=== PATIENT | female | born 1985 | race Caucasian/White ===

== ENCOUNTER 2018-02-24 10:17 | Inpatient (IN) | payer OTHER ==
[2018-01-29 11:24] VITALS: BMI 50.0
[2018-01-29 12:12] LABS: BASO % 0.2 %; BASO ABS # 0.02 K/uL (0-0.2); EOS % 3.2 %; EOS ABS # 0.28 K/uL (0-0.5); HEMATOCRIT 43.4 % (37-47); HEMOGLOBIN 14.5 g/dL (12.0-16.0); IG# 0.02 K/uL (0.00-0.02); LYMPH % 31.2 %; LYMPH ABS # 2.74 K/uL (1.2-3.4); MEAN CELL VOLUME 88.9 fL (80-100); MEAN CORPUSCULAR HEMOGLOBIN 29.7 pg (25-34); MEAN CORPUSCULAR HGB CONC 33.4 g/dl (32-36); MEAN PLATELET VOLUME 11.6 fL (7.4-10.4); MONO % 6.8 %; NEUT % 58.4 %; NEUT ABS # 5.11 K/uL (1.4-6.5); PLATELET COUNT 384 K/uL (130-400); RED CELL DISTRIBUTION WIDTH CV 13.5 % (11.5-14.5); RED CELL DISTRIBUTION WIDTH SD 44.1 fL (36.4-46.3); WHITE BLOOD COUNT 8.77 K/uL (4.8-10.8)
[2018-01-29 12:20] LABS: CALCIUM 9.3 mg/dl (8.5-10.1); CREATININE 0.88 mg/dl (0.60-1.20); POTASSIUM 3.5 mmol/L (3.5-5.1)
--- NOTE | 2018-01-29 12:24 | PAT Medication Instructions ---
Service Date Jan 29, 2018. Current Home Medication List Albuterol Hfa (Ventolin Hfa), Unknown Dose INH UD PRN for ASTHMA Chlorthalidone (Hygroton), 25 MG PO QAM Diltiazem Hcl Ext Rel (Tiazac), 300 MG PO QAM Fluticasone Propionate (Flovent Hfa), Unknown Dose INH QAM Nitroglycerin (Nitrostat), 1 TAB SL UD PRN for PRN Medication Instructions For Your Scheduled Surgery - Hold the following medications the morning of surgery (check if okay with hand i thermal cutter or if any other blood pressure medication recommendations for surgery): Chlorthalidone (Hygroton), 25 MG PO QAM - Take the following medications the morning of surgery with a sip of water: Nitroglycerin (Nitrostat), 1 TAB SL UD PRN for PRN (if needed) Diltiazem Hcl Ext Rel (Tiazac), 300 MG PO QAM Fluticasone Propionate (Flovent Hfa), Unknown Dose INH QAM Albuterol Hfa (Ventolin Hfa), Unknown Dose INH UD PRN for ASTHMA (if needed) - Take the following medications as scheduled the night before surgery: Nitroglycerin (Nitrostat), 1 TAB SL UD PRN for PRN (if needed) Albuterol Hfa (Ventolin Hfa), Unknown Dose INH UD PRN for ASTHMA (if needed) If you have any questions please call us at [phone] or [phone] or [phone]
--- NOTE | 2018-01-29 13:08 | DIAGNOSTIC IMAGING REPORT ---
CHEST 2 VIEWS ROUTINE HISTORY: Preop. COMPARISON: Chest 08/15/2006. FINDINGS: The lungs are clear. Cardiac silhouette is top normal in size. No pleural effusions. No pneumothorax. IMPRESSION: No acute process. Electronically signed by: Caleb Allen M.D. 01/29/2018 1:07 PM Dictated Date/Time: 01/29/2018 1:01 PM
[~2018-02-24] VITALS: Ht 160 cm; Wt 128.0 kg
[2018-02-24] VITALS (10 sets, daily range): BP systolic 142–192; BP diastolic 98–140; PULSE 85–100; TEMP 36.6–36.8; O2SAT 92–98; Ht 160 cm; Wt 128.0 kg
[~2018-02-24 10:17] MED LIST: ACETAMINOPHEN 500 MG TAB PO SCH; CLINDAMYCIN 600 MG/54 ML D5W 54 ML IV SCH; CeleBREX 200 MG CAP PO SCH; DILT-117 PO; FLVHFA110 INH; GABAPENTIN 900 MG PO SCH; HYG/25 PO; LACTATED RINGER'S 1000ML 1,000 ML IV SCH; NTRGSL/4 SL; VNTHFA/IN INH
[2018-02-24] MEDS ORDERED: MIDAZOLAM HCL 1 MG/ML 2ML VIAL ONE (11:35)
[2018-02-24] MEDS ORDERED: FENTANYL CITRATE INJ 50 MCG/1 ML 2 ML VIAL ONE ×4 (11:35→13:39)
--- NOTE | 2018-02-24 11:53 | History & Physical Bridge Note ---
H&P Re-Evaluation Bridge Note: I have examined the patient, reviewed the History & Physical and in the interval since the performance of the History & Physical I have noted the following changes of clinical significance: No changes noted
--- NOTE | 2018-02-24 11:54 | History and Physical ---
History & Physical Date Feb 24, 2018. Chief Complaint Back and leg pain History of Present Illness The patient is a 32 year old female with complaints of back and leg pain Additional History Hepatic Disease: No Endocrine Disorder: No Kidney Disease: No Hypertension: Yes Heart Disease: No Bleeding Tendencies: No Infectious Diseases: No Allergies Coded Allergies: [place] (Verified Allergy, Unknown, breathing problems, 02/24/18) Meperidine (Verified Allergy, Unknown, hives, 02/24/18) Penicillins (Verified Allergy, Unknown, hives, 02/24/18) pt. gets hives and has breathing problems taking pcn - pt denies breathing problems with pencillins 01/29/18 Unclassified Drugs (Verified Allergy, Unknown, FOOD ALLERGIES SEE BELOW, ) HAM - HIVES, JELLY BEANS - RASH, COOKIE DOUGH - HIVES, [employer] CHICKEN - HIVES Uncoded Allergies: MARÍA FOR SURGERY (Allergy, Severe, BODY REJECTS THEM, 02/24/18) Home Medications Scheduled Chlorthalidone (Hygroton), 25 MG PO QAM Diltiazem Hcl Ext Rel (Tiazac), 300 MG PO QAM Fluticasone Propionate (Flovent Hfa), Unknown Dose INH QAM Scheduled PRN Albuterol Hfa (Ventolin Hfa), Unknown Dose INH UD PRN for ASTHMA Nitroglycerin (Nitrostat), 1 TAB SL UD PRN for PRN Physical Examination Skin: warm/dry, no rash Eyes: normal inspection, EOMI, sclerae normal ENT: normal ENT inspection, pharynx normal Head: normocephalic, atraumatic Neck: supple, no adenopathy, trachea midline Respiratory/Chest: lungs clear, normal breath sounds, no respiratory distress Cardiovascular: regular rate, rhythm, no edema, no murmur Abdomen / GI: normal bowel sounds, non tender Back: normal inspection Extremities: normal inspection, normal range of motion Neurologic/Psych: no motor/sensory deficits, alert, normal reflexes, oriented x 3 Diagnosis Lumbar spinal stenosis with spondylolisthesis Plan of Treatment Decompression fusion L5-S1
[2018-02-24] MEDS ORDERED: BUPIVACAINE/EPINEPHRINE 0.5% MPF 1:200,000 30 ML VIAL ONE (12:17)
[2018-02-24] MEDS ORDERED: BACITRACIN 50000 UNIT VIAL ONE (12:17)
[2018-02-24] MEDS ORDERED: HYDROmorphone INJ 2 MG/ML SYR/VIAL ONE ×2 (12:51→13:05)
[2018-02-24] MEDS ORDERED: EpHEDrine SULFATE 50MG/5ML SYR ONE (13:53)
[2018-02-24] MEDS ORDERED: NEOSTIGMINE METHYLSULFATE 1 MG/ML 10ML VIAL ONE (13:53)
[2018-02-24] MEDS ORDERED: GLYCOPYRROLATE INJ 0.2 MG/ML VIAL ONE (13:53)
[2018-02-24] MEDS ORDERED: PHENYLEPHRINE 100MCG/ML 5ML SYR ONE (13:53)
[2018-02-24] MEDS ORDERED: LIDOCAINE HCL 2% 2 ML VIAL (20MG/ML) ONE (13:53)
[2018-02-24] MEDS ORDERED: LARYING-O-JET KIT (LTA) ONE (13:53)
[2018-02-24] MEDS ORDERED: PROPOFOL IV EMULSION 10 MG/ML 20 ML VIAL IV ONE (13:53)
[2018-02-24] MEDS ORDERED: DEXAMETHASONE SOD INJ 4 MG/ML VIAL ONE (13:53)
[2018-02-24] MEDS ORDERED: ROCURONIUM BROMIDE 10 MG/ML 5 ML VIAL IV ONE (13:53)
[2018-02-24] MEDS ORDERED: FLOSEAL HEMOSTATIC MATRIX 10ML TOP ONE (13:57)
--- NOTE | 2018-02-24 14:03 | [facility] Operative Report ---
Operative Report Operative Date Feb 24, 2018. Pre-Operative Diagnosis Lumbar spinal stenosis with spondylolisthesis Post-Operative Diagnosis Same Procedure(s) Performed 1. Lumbar decompression medial facetectomy foraminotomy L5-S1. #2 posterior spinal fusion L5-S1. #3 placement posterior instrumentation L5-S1. #4 interbody fusion L5-S1. #5 placed a peek cage 12 x 22 mm 2 L5-S1. #6 placement of locally harvested morselized autograft in the posterior gutters. #7 placement InFUSE collagen sponge, mass graft in the posterior lateral gutters and ostial amp in the interbody space. Surgeon Dr. Van Young Towel Distributor Surgeon(s) Susan Ritchie PA-C Estimated Blood Loss 250 Description of Procedure Patient was met with preoperatively case discussed all questions addressed. After informed consent obtained patient was taken to the operative suite underwent intubation and placed in a prone position on the Sandeep table on top of the Denzel frame. All bony prominences were well-padded eyes inspected to ensure no external pressure placed upon the. This point the lumbar spine was prepped and draped in normal sterile fashion. Sharp dissection the assistance of Bovie cautery was performed down to and exposing the lamina and transverse processes L5 S sacral ala bilaterally. Obvious bilateral pars defect was identified. A complete laminectomy of L5 was performed including bilateral foraminotomies. Pedicle screws are then placed in L5-S1 levels bilaterally with the assistance of fluoroscopy and the appropriately sized ronaldo placed through a transforaminal approach on the left complete discectomy was performed endplates created to subcortical bleeding bone and a 12 x 22 mm peek cage filled with ostium bone graft tapped in position. I also approach to the right transforaminal area and inserted a cage on this side as well. The rods were then compressed locked into final position bilaterally. The transverse processes of L5 and sacral ala burred to subcortical bleeding bone. Infuse collagen sponge master graft and locally harvested Ferguson's allograft was placed in the posterior lateral gutters. A 15 round MACIE drain inserted. Incision was then closed with 1 Vicryl fascia 2-0 Vicryl substantially 4-0 Monocryl for fashion closure Steri-Strips sterile dressings placed. Patient will continue to PACU stable condition. Please note Susan Carmen was present throughout the entire procedure involved in patient positioning complex portions of the surgery and final skin closure. I attest to the content of the Intraoperative Record and any orders documented therein. Any exceptions are noted below.
[2018-02-24] MEDS ORDERED: SODIUM CHLORIDE 0.9% 1000ML 1,000 ML IV SCH (14:04)
--- NOTE | 2018-02-24 14:14 | DIAGNOSTIC IMAGING REPORT ---
LUMBAR SPINE, INTRAOPERATIVE FLUOROSCOPY HISTORY: L5-S1 decompression and fusion. FLUOROSCOPY TIME: 18 seconds. FINDINGS: Intraoperative fluoroscopy was provided for the lumbar spine. 2 fluoroscopic spot images were obtained. Posterior decompression and fusion at L5-S1 with pedicle screws and rods. The hardware appears intact. IMPRESSION: Fluoroscopy provided for a L5-S1 posterior decompression and fusion. Electronically signed by: Caleb Allen M.D. 02/24/2018 2:13 PM Dictated Date/Time: 02/24/2018 2:12 PM
[2018-02-24] MEDS ORDERED: METOCLOPRAMIDE HCL INJ 5 MG/ML 2 ML VIAL IV PRN (14:15)
[2018-02-24] MEDS ORDERED: NALOXONE HCL 0.4 MG/1 ML VIAL/CARP IV PRN (14:15)
[2018-02-24] MEDS ORDERED: ALUMINUM/MAGNESIUM SUSP 30 ML UDC PO PRN (14:15)
[2018-02-24] MEDS ORDERED: DO NOT ADMINISTER PNEUMOCOCCAL VACCINE PRN (14:15)
[2018-02-24] MEDS ORDERED: MAGNESIUM HYDROXIDE SUSP 30 ML UDC PO PRN (14:15)
[2018-02-24] MEDS ORDERED: ACETAMINOPHEN IV 100 ML IV PRN (14:15)
[2018-02-24] MEDS ORDERED: NITROGLYCERIN 0.4 MG SL PER TAB CHARGE SL PRN (14:15)
[2018-02-24] MEDS ORDERED: LORAZEPAM INJ 0.5 MG in SYRINGE 0.75 ML IV PRN (14:15)
[2018-02-24] MEDS ORDERED: DO NOT ADMINISTER FLU VACCINE PRN (14:15)
[2018-02-24] MEDS ORDERED: BISACODYL 10 MG SUPP PR PRN (14:15)
[2018-02-24] MEDS ORDERED: PROMETHAZINE HCL INJ 12.5 MG in SODIUM CHLORIDE 0.9% 50ML 50 ML IV PRN ×2 (14:15→16:45)
[2018-02-24] MEDS ORDERED: SOD PHOSPHATE/SOD BIPHOSPHATE ENEMA 132 ML BTL PR PRN (14:15)
[2018-02-24] MEDS ORDERED: LORAZEPAM 0.5 MG TAB PO PRN (14:15)
[2018-02-24] MEDS ORDERED: ONDANSETRON INJ 2 MG/ML 2 ML VIAL IV PRN (14:15)
[2018-02-24] MEDS ORDERED: hydrOXYzine HCL 25 MG TAB PO PRN (14:15)
[2018-02-24] MEDS ORDERED: FAMOTIDINE 20 MG TAB PO PRN (14:15)
[2018-02-24] MEDS ORDERED: ESMOLOL HCL 10 MG/ML 10 ML VIAL ONE (14:18)
[2018-02-24] MEDS ORDERED: HYDROmorphone HCL 0.5MG/ML 50 ML CASSETTE ONE (14:22)
--- NOTE | 2018-02-24 14:59 | Anesthesiology Progress Note ---
Anesthesia Post Op Note Date & Time Feb 24, 2018 at 14:58 Vital Signs Pain Intensity: 0 Vital Signs Past 12 Hours Date Time Temp Pulse Resp B/P (MAP) Pulse Ox O2 Delivery O2 Flow Rate FiO2 02/24/18 14:50 91 22 170/104 94 Nasal Cannula 4 182/103 02/24/18 14:40 97 24 160/106 96 Oxymask 10 02/24/18 14:30 101 20 172/122 100 Oxymask 10 02/24/18 14:22 36.3 89 19 187/122 95 Oxymask 10 02/24/18 11:12 36.8 91 20 192/140 02/24/18 10:50 36.8 95 20 185/113 98 Room Air Notes Mental Status: alert / awake / arousable, participated in evaluation Pt Amnestic to Procedure: Yes Nausea / Vomiting: adequately controlled Pain: adequately controlled Airway Patency, RR, SpO2: stable & adequate BP & HR: stable & adequate Hydration State: stable & adequate Anesthetic Complications: no major complications apparent Patient is at her baseline blood pressure.
[2018-02-24] MEDS ORDERED: EpHEDrine SULFATE INJ 50 MG/ML AMP IV PRN (15:15)
[2018-02-24] MEDS ORDERED: ATROPINE SULFATE 0.1 MG/ML 5ML SYR IV PRN (15:15)
[2018-02-24] MEDS: HYDROmorphone HCL 0.5MG/ML 50 ML CASSETTE IV PRN ×2 (15:44→22:58)
[2018-02-24] MEDS ORDERED: LISI40TA PO (16:38)
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
[2018-02-24] MEDS ORDERED: HydrALAZINE HCL 20 MG/ML VIAL IV. PRN (18:15)
[2018-02-24] MEDS ORDERED: NURSING DECISION MEDICATION ORDER SCH (18:45)
[2018-02-24] MEDS ORDERED: COUGH DROP (SUGAR FREE) LOZ 24 LOZ/1 BOX LOZ PRN (18:45)
[2018-02-24] MEDS: LACTATED RINGER'S 1000ML 1,000 ML IV SCH (19:04)
[2018-02-24] MEDS: ERYTHROMYCIN OP OINT 5 MG/GM 3.5 GM TUBE OP SCH (19:42)
[2018-02-24] MEDS: CLINDAMYCIN IV 600 MG in DEXTROSE 5% 50ML 50 ML IV SCH (19:42)
--- NOTE | 2018-02-24 20:27 | Anesthesiology Progress Note ---
Anesthesia Progress Note Date of Service Feb 24, 2018. Progress Notes Patient seen for c/o OD pain/sensation of something gritty in right eye.PT is s/ p lumbar spine surgery this afternoon.Pt denies any visual acuity defect. Pt states when she looks to the right with her right eye there is some blurriness in the the right lateral field.I have examined her right eye and cannot appreciate any lesion.I have ordered erythromycin ophthalmic ointment to be applied to the OD TID x 5 days and that it should clear up .If it doesn't by then she should call the Dept of anesthesia.
[2018-02-24] MEDS: DOCUSATE SODIUM/SENNA 50/8.6MG TAB PO SCH (20:33)
[2018-02-24] MEDS ORDERED: NURSING VERBAL MED ORDER ONE (20:45)
[2018-02-25] MEDS: LACTATED RINGER'S 1000ML 1,000 ML IV SCH (02:00)
[2018-02-25 03:35] VITALS: BP 144/55; PULSE 96; TEMP 36.8; O2SAT 95
[2018-02-25] MEDS: CLINDAMYCIN IV 600 MG in DEXTROSE 5% 50ML 50 ML IV SCH (04:02)
[2018-02-25] MEDS ORDERED: NURSING VERBAL MED ORDER ONE ×2 (05:45→21:15)
[2018-02-25 05:55] LABS: HEMATOCRIT 36.7 % (37-47); HEMOGLOBIN 12.1 g/dL (12.0-16.0); IG# 0.04 K/uL (0.00-0.02); LYMPH ABS # 1.34 K/uL (1.2-3.4); MEAN PLATELET VOLUME 11.5 fL (7.4-10.4); MONO ABS # 0.94 K/uL (0.11-0.59); NEUT % 82.7 %; NEUT ABS # 11.14 K/uL (1.4-6.5); NUCLEATED RED BLOOD CELL ABS 0.02 K/uL (0-0); PLATELET COUNT 285 K/uL (130-400); RED CELL DISTRIBUTION WIDTH CV 13.1 % (11.5-14.5); RED CELL DISTRIBUTION WIDTH SD 41.7 fL (36.4-46.3); WHITE BLOOD COUNT 13.46 K/uL (4.8-10.8)
[2018-02-25] MEDS ORDERED: DC PCA SCH (06:00)
[2018-02-25] MEDS ORDERED: NALOXONE HCL 0.4 MG/1 ML VIAL/CARP IV PRN (06:00)
[2018-02-25 06:26] LABS: CALCIUM 8.6 mg/dl (8.5-10.1); CREATININE 0.99 mg/dl (0.60-1.20); POTASSIUM 3.7 mmol/L (3.5-5.1)
--- NOTE | 2018-02-25 07:01 | Clinical Documentation Query ---
IVANIA Webster : CLINICAL DOCUMENTATION QUERY BMI noted to be 50 kg/m*m. In order to capture this always relevant clinical information, an associated clinical diagnosis must be explicitly documented by the provider. As appropriate, consider documentation as suggested below. Thank you. In your clinical opinion is this patien: ( ) Morbidly obese, BMI 50.0 kg/m*m ( ) Not Agree ( ) Other explanation of clinical findings (Please Explain) ( ) Unable to determine (Please Define) ( ) Need to Discuss The medical record reflects the following clinical findings, treatment, and risk factors. Clinical Indicators: As above Risk Factors: Caloric intake > caloric expenditure Please clarify and document your clinical opinion in the progress notes and discharge summary. Terms such as "probable", "suspected", "likely", "questionable", "possible", or "still to be ruled out" are acceptable. IF IN AGREEMENT, YOU MUST DOCUMENT ABOVE DIAGNOSTIC STATEMENT IN DAILY PROGRESS NOTES AND DISCHARGE SUMMARY. This document is not part of the patient's record. Thank You, Angel Whipple, CAT [phone]
[2018-02-25 07:20] VITALS: BP 116/75; PULSE 86; TEMP 36.8; O2SAT 96
[2018-02-25] MEDS ORDERED: RXC5 PO (07:36)
--- NOTE | 2018-02-25 07:37 | Discharge Instructions ---
Discharge Instructions Date of Service Feb 25, 2018. Admission Reason for Admission: Spinal Stenosis Discharge Discharge Diagnosis / Problem: cervical stenosis Discharge Goals Goal(s): Improve function Activity Recommendations Activity Limitations: per Instructions/Follow-up section . Instructions / Follow-Up Instructions / Follow-Up ACTIVITY RECOMMENDATIONS: SELF CARE INSTRUCTIONS AFTER THORACIC/LUMBAR FUSIONS 1. You may walk to your tolerance. It is good exercise for your legs and back. Expect some back and intermittent leg aches and pains. 2. You may perform "counter-top" level activities (make a sandwich, gavino with a project, etc.). 3. No bending or lifting of more than 10 pounds or back twisting of any nature (roll like a log when turning in bed). 4. You may ride in a car for 20-30 minutes at a time. No driving until after your first visit with your doctor. 5. Frequent changes of position and restricting sitting to 30 minutes at a time will help limit the amount of back spasms and stiffness you may experience. 6. You may discontinue the use of ambulatory aids (cane, crutches, etc.) once your strength and confidence allow. 7. You may floor refinisher the shower and let water strike your incision when you arrive home at least once daily. Do not take a tub bath, sit in a hot tub or go into a swimming pool until after your first recheck in the office. SPECIAL CARE INSTRUCTIONS: VERY IMPORTANT TO READ AND REVIEW A. Your surgical incision has been closed with a cosmetic suture under the skin that will dissolve in about 6 weeks. In 14 days, you can use a pair of clean scissors and cut the suture that is left outside of the skin at the ends of your incision. 1. The small skin tapes can be removed 7 days after surgery if they have not fallen off by that point. 2. You may keep the wound open to air as much as possible to promote healing after post-op day number 5 unless told otherwise by your doctor. 3. If you think the wound looks like it is becoming infected (redness or worsening drainage) and/or you are experiencing fever, chill or worsening back pain and muscle spasms, contact the office so that we may evaluate you as soon as possible. B. Complications are uncommon, but please contact us if you have any signs or symptoms of: 1. wound infection (fever higher than 102.5 degrees F, redness, separation of wound, drainage, or increasing pain from the incision) 2. blood clots in legs (pain, swelling, redness and warmth in legs) 3. urinary tract infection (fever higher than 102.5 degrees F, burning upon urination or increased frequency of urination) 4. nerve problems (inability to walk on your toes or heels, numbness, loss of bowel or bladder control) 5. any other symptoms that concern you C. Please call the office at if you have any concerns or questions about your operation or recovery. D. No smoking! Smoking drastically decreases the chance of a solid fusion. E. Do not take any anti-inflammatory medications (Indocin, Advil, Motrin, Aspirin, Naprosyn, etc.) as these may inhibit the chance of a solid fusion. Tylenol is okay to take for pain. MANAGING PAIN AFTER SPINAL SURGERY 1. Narcotic medication is intended for short-term use and will be provided for surgical pain. Surgical pain usually lasts for a period of 4-6 weeks. Narcotic medication includes Percocet, Vicodin, Darvocet, Tylenol #3 or Lortab. 2. Longer-term pain is more appropriately treated with non-narcotic medication such as Tylenol ES. 3. Muscle spasm is not appropriately treated with narcotics. Muscle relaxers such as Soma, Flexeril or Skelaxin can be used along with Tylenol ES. 4. Remember that we all live with some "aches and pains". This is not unusual or uncommon after an injury or as we get older. a. Back pain is expected and may include muscle spasms for 4 to 6 weeks after surgery. The pain should gradually improve. If the pain worsens for no apparent reason, please contact the office. b. Intermittent leg pain may also be experienced and should not be concerned about unless it worsens for no apparent reason. If so, please contact the office. 5. We will provide appropriate medication within the normal guidelines of their prescribed use. We will also be very cautious and aware of potential abuse and extended duration of patients' medication needs. a. Pain medications are for your comfort and to assist with sleep and rest so that the tissue can heal. They are not provided in order to return to normal activity and should not be used through the day. To do so or worsening pain at night can result from ongoing tissue damage and development of tolerance to the prescribed medicine. 6. Please allow 2-3 days to process refills. Prescriptions will not be mailed but must be picked up at the office. FOLLOW UP VISIT: Keep your scheduled follow-up appointment. Any questions, please call the office at . Current Hospital Diet Patient's current hospital diet: Regular Diet, Low Sodium Diet (2gm Na) Discharge Diet Recommended Diet: Regular Diet Procedures Procedures Performed: 1. Lumbar decompression medial facetectomy foraminotomy L5-S1. #2 posterior spinal fusion L5-S1. #3 placement posterior instrumentation L5-S1. #4 interbody fusion L5-S1. #5 placed a peek cage 12 x 22 mm 2 L5-S1. #6 placement of locally harvested morselized autograft in the posterior gutters. #7 placement InFUSE collagen sponge, mass graft in the posterior lateral gutters and ostial amp in the interbody space. Pending Studies Studies pending at discharge: no Medical Emergencies . Who to Call and When: Medical Emergencies: If at any time you feel your situation is an emergency, please call 911 immediately. . Non-Emergent Contact Non-Emergency issues call your: Primary Care Provider . "Provider Documentation" section prepared by Van Young. .
--- NOTE | 2018-02-25 07:42 | Anesthesiology Progress Note ---
Anesthesia Post Op Note Date & Time Feb 25, 2018 at 07:42 Vital Signs Vital Signs Past 12 Hours Date Time Temp Pulse Resp B/P (MAP) Pulse Ox O2 Delivery O2 Flow Rate FiO2 02/25/18 07:20 36.8 86 16 116/75 (89) 96 Room Air 02/25/18 03:35 36.8 96 18 144/55 (84) 95 Room Air 02/24/18 23:50 Room Air 02/24/18 22:45 36.8 100 18 155/104 (121) 93 Room Air Notes Mental Status: alert / awake / arousable, participated in evaluation Pt Amnestic to Procedure: Yes Nausea / Vomiting: adequately controlled Pain: adequately controlled Airway Patency, RR, SpO2: stable & adequate BP & HR: stable & adequate Hydration State: stable & adequate Anesthetic Complications: no major complications apparent
[2018-02-25] MEDS: OXYCODONE HCL IR 5 MG TAB (IMMEDIATE RELEASE) PO PRN ×4 (08:02→23:26)
[2018-02-25] MEDS: FLUTICASONE HFA 220 MCG INHALER INH SCH (08:04)
[2018-02-25] MEDS: ERYTHROMYCIN OP OINT 5 MG/GM 3.5 GM TUBE OP SCH ×3 (08:04→21:12)
[2018-02-25] MEDS: CHLORTHALIDONE 25 MG TAB PO SCH (08:05)
[2018-02-25] MEDS: REL PO SCH ×2 (08:06)
[2018-02-25] MEDS: DILTIAZEM HCL PO SCH ×2 (08:06)
[2018-02-25] MEDS ORDERED: DILTIAZEM HCL PO SCH (09:00)
[2018-02-25] MEDS ORDERED: LISINOPRIL 40 MG TAB PO SCH (09:00)
[2018-02-25] MEDS: ACETAMINOPHEN 500 MG TAB PO PRN (10:29)
--- NOTE | 2018-02-25 10:54 | Anesthesiology Progress Note ---
Anesthesia Progress Note Date of Service Feb 25, 2018. Progress Notes patient was seen on the floor yesterday with complaint of pain, tearing, and blurry vision in R eye. she did not notice these issues when i discharged her from [facility]. she was seen on the floor by my partner who did not appreciate an abrasion but treated her emperically with erythromycin opthalmic ointment. today she is seated in a chair and feeling much better. she has no tearing, pain, or visual disturbance. i appreciate no visual deficits and can not see any lesions in the eye. I explained the possibility that this may be a very small corneal abrasion and that she should continue the ointment as an outpatient for a total of 5 days. we will be happy to reevaluate her if new issues arise.
--- NOTE | 2018-02-25 13:26 | Progress Note ---
Progress Note Date of Service Feb 25, 2018. Progress Note Patient's back pain is controlled her leg pain is markedly improved. Vital signs are stable. On exam she is in a chair at the bedside is excellent strength testing appears comfortable. Assessment status post lumbar decompression fusion. Plan at this time we will continue physical therapy advance her bowel regiment anticipate home tomorrow.
--- NOTE | 2018-02-25 15:04 | Progress Note ---
Medicine Progress Note Date & Time of Visit: Feb 25, 2018 at 14:56. Subjective seen resting in bedside chair comfortable states she feels fine overall surgical site feels "sore" but pain well controlled noticed swelling of both feet but no pain/tenderness no other symptoms Objective Last 8 Hrs Date Time Temp Pulse Resp B/P (MAP) Pulse Ox O2 Delivery O2 Flow Rate FiO2 02/25/18 08:00 Room Air 02/25/18 07:20 36.8 86 16 116/75 (89) 96 Room Air Physical Exam: General- oriented x 3, not in distress, speaks in sentences with no effort Head- atraumatic Eyes- PERRL, EOMI, anicteric ENT- oropharynx clear Neck- supple, no JVD, no adenopathy, no thyromegaly Lungs- clear breath sounds bilaterally, no rales/wheezes Heart- regular rhythm; no murmur, normal rate Abdomen- normal bowel sounds, soft, nontender Extremities- (+) edema of bilateral feet no leg tenderness/erythema/warmth Neuro- alert, oriented x 3; no gross focal deficits Skin- warm & dry Laboratory Results: Last 24 Hours Test 02/25/18 05:35 White Blood Count 13.46 K/uL Red Blood Count 4.17 M/uL Hemoglobin 12.1 g/dL Hematocrit 36.7 % Mean Corpuscular Volume 88.0 fL Mean Corpuscular Hemoglobin 29.0 pg Mean Corpuscular Hemoglobin Concent 33.0 g/dl Platelet Count 285 K/uL Mean Platelet Volume 11.5 fL Neutrophils (%) (Auto) 82.7 % Lymphocytes (%) (Auto) 10.0 % Monocytes (%) (Auto) 7.0 % Eosinophils (%) (Auto) 0.0 % Basophils (%) (Auto) 0.0 % Neutrophils # (Auto) 11.14 K/uL Lymphocytes # (Auto) 1.34 K/uL Monocytes # (Auto) 0.94 K/uL Eosinophils # (Auto) 0.00 K/uL Basophils # (Auto) 0.00 K/uL RDW Standard Deviation 41.7 fL RDW Coefficient of Variation 13.1 % Immature Granulocyte % (Auto) 0.3 % Immature Granulocyte # (Auto) 0.04 K/uL Nucleated RBC Absolute Count (auto) 0.02 K/uL Nucleated Red Blood Cells % 0.2 % Sodium Level 136 mmol/L Potassium Level 3.7 mmol/L Chloride Level 106 mmol/L Carbon Dioxide Level 23 mmol/L Anion Gap 7.0 mmol/L Blood Urea Nitrogen 11 mg/dl Creatinine 0.99 mg/dl Est Creatinine Clear Calc Drug Dose 105.4 ml/min Estimated GFR () 86.8 Estimated GFR (Non- 74.9 BUN/Creatinine Ratio 11.1 Random Glucose 140 mg/dl Calcium Level 8.6 mg/dl Assessment & Plan S/P L5 - S1 DECOMPRESSION AND FUSION - POD#1 pain well controlled PT/OT EDEMA OF BILATERAL FEET likely from IV fluids, Decadron continue Chlorthalidone advised to elevate legs,encouraged to ambulate monitor if with no improvement by tomorrow, will order lasix HYPERTENSION stable -Continue chlorthalidone, lisinopril, diltiazem PROLONGED QTC -EKG from 01/29 she was QTC 515 -Avoid QTC prolonging agents -Follow daily EKG -Follows with cardiology and [place] HISTORY SVT S/P ABLATION -Continue diltiazem for rate control ASTHMA -No signs of acute exacerbation -Continue home inhalers HISTORY CECILY Thank you for this consultation. We will follow the patient with you during their hospital stay. You can reach a member of the [facility] Hospitalist Team 03/06 via pager @ [phone]. Current Inpatient Medications: Current Inpatient Medications Medications (Trade) Dose Ordered Sig/Padmini Route Start Time Stop Time Status Last Admin Dose Admin Metoclopramide HCl (Reglan Inj) 10 mg Q6H PRN IV 02/24/18 14:15 03/26/18 14:14 Lorazepam (Ativan Tab) 0.5 mg Q8H PRN PO 02/24/18 14:15 03/26/18 14:14 Lorazepam 0.5 mg/ Syringe 1 ml @ 1 mls/min Q8H PRN IV 02/24/18 14:15 03/26/18 14:14 Pneumococcal Polysaccharide Vaccine 1 ea PRN PRN N/A 02/24/18 14:15 03/26/18 14:14 Influenza Virus Vacc Triv Types A&B 1 ea PRN PRN N/A 02/24/18 14:15 03/26/18 14:14 Polyethylene (Miralax Powder Packet) 17 gm Q6 PO 02/26/18 06:00 5/18/18 05:59 Bisacodyl (Dulcolax Supp) 10 mg DAILY PRN [place] 02/24/18 14:15 03/26/18 14:14 Magnesium Hydroxide (Milk Of Magnesia Susp) 30 ml DAILY PRN PO 02/24/18 14:15 03/26/18 14:14 Hydromorphone HCl (Dilaudid Inj) 0.5-1mg prn moder... Q3H PRN IV 02/25/18 06:00 03/11/18 05:59 Oxycodone HCl (Roxicodone Immediate Rel Tab) 5-10mg prn moderate to sev... Q4H PRN PO 02/25/18 06:00 03/11/18 05:59 02/25/18 12:02 10 MG Acetaminophen (Tylenol Tab) 1,000 mg Q8H PRN PO 02/24/18 14:15 03/26/18 14:14 02/25/18 10:29 1,000 MG Acetaminophen 100 ml @ 400 mls/hr Q8H PRN IV 02/24/18 14:15 03/26/18 14:14 02/25/18 00:01 400 MLS/HR Naloxone HCl (Narcan Inj) 0.1 mg Q5M PRN IV 02/25/18 06:00 03/27/18 05:59 Senna/Docusate Sodium (Senokot S Tab) 2 tab HS PO 02/24/18 21:00 03/26/18 20:59 02/24/18 20:33 2 TAB Sodium Biphosphate/ Sodium Phosphate (Fleet Enema) 132 ml ONE PRN [place] 02/24/18 14:15 03/26/18 14:14 Hydroxyzine HCl (Vistaril Tab) 25 mg Q8H PRN PO 02/24/18 14:15 03/26/18 14:14 Al Hydroxide/Mg Hydroxide (Maalox Susp) 30 ml Q6H PRN PO 02/24/18 14:15 03/26/18 14:14 Famotidine (Pepcid Tab) 20 mg Q12 PRN PO 02/24/18 14:15 03/26/18 14:14 Diphenhydramine HCl (Benadryl Cap) 25 mg Q6H PRN PO 02/24/18 14:15 03/26/18 14:14 Chlorthalidone (Hygroton Tab) 25 mg QAM PO 02/25/18 09:00 03/27/18 08:59 02/25/18 08:05 25 MG Nitroglycerin (Nitrostat Tab) 0.4 mg UD PRN SL 02/24/18 14:15 03/26/18 14:14 Ephedrine Sulfate (EpHEDrine SULFATE INJ) 5 mg Q5M PRN IV 02/24/18 15:15 02/25/18 20:15 Atropine Sulfate (Atropine Sulfate 0.1mg/ml Inj) 0.5 mg Q1M PRN IV 02/24/18 15:15 02/25/18 20:15 Diltiazem HCl (TIAzac CAP) 300 mg DAILY PO 02/25/18 09:00 03/27/18 08:59 02/25/18 08:06 300 MG Lisinopril (Zestril Tab) 40 mg DAILY PO 02/25/18 09:00 03/27/18 08:59 02/25/18 08:05 40 MG Promethazine HCl 12.5 mg/Sodium Chloride 50.5 ml @ 204 mls/hr Q6H PRN IV 02/24/18 16:45 03/26/18 16:44 Fluticasone Propionate (Flovent Hfa 220MCG Inhaler) 1 puffs DAILY INH 02/25/18 09:00 03/27/18 08:59 02/25/18 08:04 1 PUFFS Hydralazine HCl (HydrALAZINE INJ) 10 mg Q6H PRN IV. 02/24/18 18:15 03/26/18 18:14 Menthol (Nice Swathi) 1 swathi PRN PRN SWATHI 02/24/18 18:45 03/26/18 18:44 Erythromycin (Erythromycin Oph Oint) 1 appln TID OP 02/24/18 21:00 03/01/18 23:59 02/25/18 13:42 1 APPLN
[2018-02-25 15:56] VITALS: BP 100/66; PULSE 74; TEMP 36.7; O2SAT 94
[2018-02-25] MEDS: HYDROmorphone INJ 0.5 MG/0.5 ML SYR IV PRN (19:55)
[2018-02-25] MEDS: DOCUSATE SODIUM/SENNA 50/8.6MG TAB PO SCH (21:12)
[2018-02-25] MEDS ORDERED: LORAZEPAM INJ 1 MG in SYRINGE 0.5 ML IV ONE (21:15)
[2018-02-25] MEDS ORDERED: KETOROLAC TROMETHAMINE 30 MG/ML VIAL IV. PRN (21:15)
[2018-02-25] MEDS ORDERED: KETOROLAC TROMETHAMINE 30 MG/ML VIAL IV. ONE (21:15)
[2018-02-25 23:23] VITALS: BP 109/67; PULSE 66; TEMP 36.7; O2SAT 97
[2018-02-26] MEDS: HYDROmorphone INJ 0.5 MG/0.5 ML SYR IV PRN (03:06)
[2018-02-26] MEDS: POLYETHYLENE (MIRALAX) 17 GM PACK PO SCH ×2 (05:42→11:54)
[2018-02-26 07:42] VITALS: BP 120/83; PULSE 90; TEMP 36.7; O2SAT 94
[2018-02-26] MEDS: DILTIAZEM HCL PO SCH ×2 (09:19)
[2018-02-26] MEDS: REL PO SCH ×2 (09:19)
[2018-02-26] MEDS: ERYTHROMYCIN OP OINT 5 MG/GM 3.5 GM TUBE OP SCH (09:20)
[2018-02-26] MEDS: FLUTICASONE HFA 220 MCG INHALER INH SCH (09:20)
[2018-02-26] MEDS: CHLORTHALIDONE 25 MG TAB PO SCH (09:20)
[2018-02-26] MEDS: ACETAMINOPHEN 500 MG TAB PO PRN (09:22)
--- NOTE | 2018-02-26 11:11 | Discharge Summary ---
Orthopedic Discharge Summary Admission Date/Reason Feb 24, 2018 at 14:07 Spinal Stenosis. Discharge Date/Disposition Feb 26, 2018 Home Diagnosis Principal Diagnosis: Lumbar spinal stenosis Admission Physical Exam As per Admitting History & Physical. Hospital Course Patient underwent lumbar decompression fusion tolerated this well was taken to the orthopedic floor postoperatively. Postop day #1 she was up and amatory leg symptoms markedly improved. She progressed through postop day #2 and was subsequently discharged home. Discharge orders and instructions can be found in the chart for further review. Discharge Instructions Please refer to the electronic Patient Visit Report (Discharge Instructions) for additional information.
[2018-02-26 11:57] VITALS: BP 120/83; PULSE 90; TEMP 36.7; O2SAT 94
[2018-02-26] MEDS: OXYCODONE HCL IR 5 MG TAB (IMMEDIATE RELEASE) PO PRN (12:49)
== END 2018-02-26 13:10 | disposition home or self-care (01) | DRG 454 ==
LOC: C.ACU 10:17 → C.3E 14:07 → CANRESERV 15:16 → ENRESERV 15:16
PROVIDERS: ADMIT Orthopaedic Surgery Orthopaedic Surgery of the Spine; ATTEND Orthopaedic Surgery Orthopaedic Surgery of the Spine
PROC: 0SG30AJ Fusion of Lumbosacral Joint with Interbody Fusion Device, Posterior Approach, Anterior Column, Open Approach (ICD-10-PCS; principal; 2018-02-24 12:45)
PROC: 0ST40ZZ Resection of Lumbosacral Disc, Open Approach (ICD-10-PCS; principal; 2018-02-24 12:45)
PROC: 3E0U0GB Introduction of Recombinant Bone Morphogenetic Protein into Joints, Open Approach (ICD-10-PCS; principal; 2018-02-24 12:45)
PROC: 0SG30K1 Fusion of Lumbosacral Joint with Nonautologous Tissue Substitute, Posterior Approach, Posterior Column, Open Approach (ICD-10-PCS; principal; 2018-02-24 12:45)
DX: M48.061 Spinal stenosis, lumbar region without neurogenic claudication (principal); Q79.6 Ehlers-Danlos syndromes; Z68.43 Body mass index [BMI] 50.0-59.9, adult; M43.16 Spondylolisthesis, lumbar region; S05.01XA Injury of conjunctiva and corneal abrasion without foreign body, right eye, initial encounter; X58.XXXA Exposure to other specified factors, initial encounter; Y92.239 Unspecified place in hospital as the place of occurrence of the external cause; R60.0 Localized edema; I25.10 Atherosclerotic heart disease of native coronary artery without angina pectoris; I48.91 Unspecified atrial fibrillation; I45.81 Long QT syndrome; I10 Essential (primary) hypertension; J45.909 Unspecified asthma, uncomplicated; E66.01 Morbid (severe) obesity due to excess calories; Z86.73 Personal history of transient ischemic attack (TIA), and cerebral infarction without residual deficits; Z87.891 Personal history of nicotine dependence; Z79.51 Long term (current) use of inhaled steroids; Z79.899 Other long term (current) drug therapy; Z88.0 Allergy status to penicillin; Z88.5 Allergy status to narcotic agent; Z88.8 Allergy status to other drugs, medicaments and biological substances; Z91.018 Allergy to other foods; Z91.048 Other nonmedicinal substance allergy status